=== PATIENT | female | born 1975 | race Asian ===

== ENCOUNTER 2018-04-17 10:58 | Day surgery (SDC) | payer BC ==
[2018-04-17] MEDS ORDERED: MIDAZOLAM 1 MG/ML 2 ML INJ ×3 (12:23→12:24)
[2018-04-17] MEDS ORDERED: FENTAnyl 50 MCG/ML VIAL (12:23)
== END 2018-04-17 11:45 | disposition home or self-care (01) ==
LOC: GIL 10:58
DX: Z12.11 Encounter for screening for malignant neoplasm of colon (principal); K29.30 Chronic superficial gastritis without bleeding; K64.8 Other hemorrhoids; K21.9 Gastro-esophageal reflux disease without esophagitis
CPT/HCPCS: 43239; 84703; 88305; 88312